=== PATIENT | male | born 2000 | race Caucasian/White ===

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

== ENCOUNTER → 2019-03-18 | Outpatient (CLI) | payer OTHER ==
[~2019-03-18] MED LIST changes: +HYDR-3165 PO; -HYDR-971 PO
--- NOTE | 2019-03-18 23:41 | RAD ---
EXAM: Limited pelvic ultrasound. HISTORY: Palpable focus left groin. COMPARISON: None. FINDINGS: Sonographic evaluation was performed at the site of concern in the left groin. This reveals an immediately subcutaneous hypoechoic focus measuring 11 x 4 x 13 mm. There is no internal perfusion or involvement of deeper compartments. No clear communication with the skin surface is identified. IMPRESSION: 1. 13 x 11 x 4 mm immediately subcutaneous hypoechoic collection. Correlate for a sebaceous cyst or subcutaneous abscess. Ongoing clinical follow-up/management of palpable foci is recommended. Electronically signed by: Shannen Razo MD (03/18/2019 11:38 PM) [facility]
== END | disposition home or self-care (01) ==
LOC: US 14:57
PROVIDERS: ATTEND Registered Nurse
DX: R19.09 Other intra-abdominal and pelvic swelling, mass and lump (principal)
CPT/HCPCS: 76857